=== PATIENT | female | born 1985 | race Caucasian/White ===

== ENCOUNTER 2017-04-21 12:24 | Outpatient (CLI) | payer MEDICAID ==
[2017-04-21 13:35] LABS: ADD MAN DIFF? NO
[2017-04-21 13:36] LABS: WHITE BLOOD COUNT 7.3 10^3/ul (4.8-10.8)
[2017-04-21 13:36] LABS: BASOPHILS % 0.3 % (0.0-2.0); EOSINOPHILS # 0.1 10^3/ul (0.0-0.5); EOSINOPHILS % 0.7 % (0.0-7.0); HEMATOCRIT 31.6 % (37.0-47.0); HEMOGLOBIN 10.8 g/dl (12.0-16.0); LYMPHOCYTES # 1.7 10^3/ul (0.8-2.9); LYMPHOCYTES % 23.2 % (15.0-51.0); MEAN CORPUSCULAR HEMOGLOBIN 30.1 pg (29.0-33.0); MEAN CORPUSCULAR HGB CONC 34.2 g/dl (32.0-37.0); MEAN PLATELET VOLUME 10.6 fl (7.4-10.4); MONOCYTE # 0.4 10^3/ul (0.3-0.9); MONOCYTES % 5.7 % (0.0-11.0); NEUTROPHIL # 5.1 10^3/ul (1.6-7.5); NEUTROPHILS % 69.1 % (39.0-77.0); PLATELET COUNT 216 10^3/UL (140-415); RED BLOOD COUNT 3.59 10^6/ul (4.20-5.40); RED CELL DISTRIBUTION WIDTH 14.6 % (11.5-14.5)
[2017-04-21 13:56] LABS: INR 0.91; PARTIAL THROMBOPLASTIN TIME 27.5 Sec (25.0-35.0); PROTIME 12.3 Sec (11.9-14.9)
[2017-04-21 13:57] LABS: ALANINE AMINOTRANSFERASE 29 IU/L (13-69); ALBUMIN 3.6 g/dl (3.3-4.9); ALBUMIN/GLOBULIN RATIO 1.16; ALKALINE PHOSPHATASE 178 IU/L (42-121); ANION GAP 15 (8-16); ASPARTATE AMINO TRANSFERASE 20 IU/L (15-46); BILIRUBIN,INDIRECT 0.2 mg/dl (0-1.1); BILIRUBIN,TOTAL 0.2 mg/dl (0.2-1.3); BLOOD UREA NITROGEN 10 mg/dl (7-20); CALCIUM 9.2 mg/dl (8.4-10.2); CARBON DIOXIDE 19 mmol/L (21-31); CHLORIDE 106 mmol/L (97-110); CREATININE 0.57 mg/dl (0.44-1.00); GLUCOSE 80 mg/dl (70-220); SODIUM 136 mmol/L (135-144); TOTAL PROTEIN 6.7 g/dl (6.1-8.1); URIC ACID 5.5 mg/dl (3.1-7.9)
[2017-04-21 14:00] LABS: ADD UMIC YES; UR ASCORBIC ACID NEGATIVE (NEGATIVE); UR BACTERIA MODERATE /HPF (NONE SEEN); UR BILIRUBIN (Dip) NEGATIVE (NEGATIVE); UR BLOOD (Dip) 2+ mg/dL (NEGATIVE); UR CLARITY SLIGHTLY CLOUDY (CLEAR); UR COLOR YELLOW (YELLOW); UR GLUCOSE (Dip) NEGATIVE (NEGATIVE); UR KETONES (Dip) NEGATIVE (NEGATIVE); UR LEUKOCYTE ESTERASE (Dip) TRACE Leu/ul (NEGATIVE); UR NITRITE (Dip) NEGATIVE (NEGATIVE); UR RBC 3 /HPF (0-5); UR SPECIFIC GRAVITY (Dip) 1.004 (1.003-1.030); UR SQUAMOUS EPITHELIAL CELL FEW /HPF (FEW); UR TOTAL PROTEIN (Dip) NEGATIVE (NEGATIVE); UR UROBILINOGEN (Dip) NEGATIVE (NEGATIVE); UR WBC 2 /HPF (0-5)
== END 2017-04-21 15:00 | disposition home or self-care (01) ==
LOC: OBT 12:24 → L-D 12:24 → OBT 15:00
DX: O13.3 Gestational [pregnancy-induced] hypertension without significant proteinuria, third trimester (principal); Z3A.39 39 weeks gestation of pregnancy
CPT/HCPCS: 76815; 76818; 80053; 81001; 84560; 85025; 85384; 85610; 85730

== ENCOUNTER 2017-04-23 06:03 | Inpatient (IN) | payer MEDICAID ==
[2017-04-23] MEDS: AMPICILLIN 1 GM/NS (PMX) 50 ML IV ×4 (02:06→22:01)
[2017-04-23] MEDS ORDERED: OXYTOCIN 30 UNITS/LR 500 ML IV (06:30)
[2017-04-23] MEDS ORDERED: MINERAL OIL LIGHT 10 ML VIAL TOP (06:30)
[2017-04-23] MEDS ORDERED: MISOPROSTOL 200 MCG TAB PR (06:30)
[2017-04-23] MEDS ORDERED: METHYLERGONOVINE 0.2 MG INJ IM (06:30)
[2017-04-23] MEDS ORDERED: CARBOPROST 250 MCG INJ IM (06:30)
[2017-04-23] MEDS ORDERED: IBUPROFEN 600 MG TAB PO (06:30)
[2017-04-23] MEDS: LACTATED RINGER'S 500 ML IV (06:58)
[2017-04-23] MEDS: LACTATED RINGER'S 1,000 ML IV ×2 (07:20→16:00)
[2017-04-23 07:22] LABS: ADD MAN DIFF? NO
[2017-04-23 07:49] LABS: BASOPHILS % 0.4 % (0.0-2.0); EOSINOPHILS # 0.1 10^3/ul (0.0-0.5); EOSINOPHILS % 1.1 % (0.0-7.0); HEMATOCRIT 35.1 % (37.0-47.0); HEMOGLOBIN 12.2 g/dl (12.0-16.0); LYMPHOCYTES # 2.3 10^3/ul (0.8-2.9); LYMPHOCYTES % 31.3 % (15.0-51.0); MEAN CORPUSCULAR HEMOGLOBIN 31.4 pg (29.0-33.0); MEAN CORPUSCULAR HGB CONC 34.8 g/dl (32.0-37.0); MEAN CORPUSCULAR VOLUME 90.2 fl (82.0-101.0); MONOCYTE # 0.4 10^3/ul (0.3-0.9); MONOCYTES % 5.2 % (0.0-11.0); NEUTROPHIL # 4.4 10^3/ul (1.6-7.5); NEUTROPHILS % 60.6 % (39.0-77.0); PLATELET COUNT 230 10^3/UL (140-415); RED BLOOD COUNT 3.89 10^6/ul (4.20-5.40); RED CELL DISTRIBUTION WIDTH 15.7 % (11.5-14.5)
[2017-04-23 07:49] LABS: WHITE BLOOD COUNT 7.3 10^3/ul (4.8-10.8)
[2017-04-23 07:58] LABS: INR 0.82; PARTIAL THROMBOPLASTIN TIME 27.5 Sec (25.0-35.0); PROTIME 11.3 Sec (11.9-14.9); PT RATIO 0.9
[2017-04-23] MEDS: DINOPROSTONE 10 MG VAG SUPP VAG (09:37)
[2017-04-23] MEDS: AMPICILLIN 2 GM/NS (PMX) 100 ML IV (09:56)
[2017-04-23 15:16] LABS: RAPID PLASMA REAGIN NONREACTIVE (NR)
[2017-04-24] MEDS: LACTATED RINGER'S 1,000 ML IV ×3 (00:28→20:28)
[2017-04-24] MEDS: AMPICILLIN 1 GM/NS (PMX) 50 ML IV ×3 (02:06→10:28)
[2017-04-24] MEDS: MISOPROSTOL 25 MCG CAPSULE PO ×4 (11:43→21:19)
[2017-04-24] MEDS: AMPICILLIN 1 GM/NS (PMX) 50 ML IVPB ×3 (14:20→21:21)
[2017-04-24] MEDS: BUTORPHANOL 2 MG INJ IV (20:36)
[2017-04-25] MEDS ORDERED: OXYTOCIN 30 UNITS/LR 500 ML IV ×2 (00:30→01:30)
[2017-04-25] MEDS: LIDOCAINE 1% (MPF) 30 ML INJ INJ (00:43)
[2017-04-25] MEDS: OXYTOCIN 30 UNITS/LR 500 ML IV ×3 (00:45→01:40)
[2017-04-25] MEDS: MINERAL OIL LIGHT 10 ML VIAL TOP (00:49)
[2017-04-25] MEDS: MISOPROSTOL 25 MCG CAPSULE PO (01:00)
[2017-04-25] MEDS: AMPICILLIN 1 GM/NS (PMX) 50 ML IVPB (01:00)
[2017-04-25] MEDS: LACTATED RINGER'S 1,000 ML IV* (01:22)
[2017-04-25] MEDS ORDERED: MISOPROSTOL 200 MCG TAB PR (01:30)
[2017-04-25] MEDS ORDERED: CARBOPROST 250 MCG INJ IM (01:30)
[2017-04-25] MEDS ORDERED: METHYLERGONOVINE 0.2 MG INJ IM (01:30)
[2017-04-25] MEDS: OXYCODONE/ASPIRIN (4.88/325) TAB PO (03:28)
[2017-04-25] MEDS ORDERED: DIBUCAINE 1% 30 GM OINT PR (03:30)
[2017-04-25] MEDS: IBUPROFEN 600 MG TAB PO ×3 (06:16→17:47)
[2017-04-25] MEDS: BENZOCAINE 20% 56 ML SPRAY TOP (06:37)
[2017-04-25] MEDS: LANOLIN 7 GM TUBE TOP (06:38)
[2017-04-25] MEDS: WITCH HAZEL/GLYCERIN PAD PR (06:38)
[2017-04-26] MEDS: IBUPROFEN 600 MG TAB PO ×4 (00:25→17:35)
[2017-04-26 09:15] LABS: ADD MAN DIFF? NO
[2017-04-26 09:17] LABS: WHITE BLOOD COUNT 9.8 10^3/ul (4.8-10.8)
[2017-04-26 09:17] LABS: BASOPHILS % 0.3 % (0.0-2.0); EOSINOPHILS # 0.1 10^3/ul (0.0-0.5); EOSINOPHILS % 0.7 % (0.0-7.0); HEMATOCRIT 26.9 % (37.0-47.0); HEMOGLOBIN 8.9 g/dl (12.0-16.0); LYMPHOCYTES # 2.8 10^3/ul (0.8-2.9); LYMPHOCYTES % 28.8 % (15.0-51.0); MEAN CORPUSCULAR HEMOGLOBIN 29.4 pg (29.0-33.0); MEAN CORPUSCULAR HGB CONC 33.1 g/dl (32.0-37.0); MEAN CORPUSCULAR VOLUME 88.8 fl (82.0-101.0); MEAN PLATELET VOLUME 10.7 fl (7.4-10.4); MONOCYTE # 0.5 10^3/ul (0.3-0.9); MONOCYTES % 4.6 % (0.0-11.0); NEUTROPHIL # 6.2 10^3/ul (1.6-7.5); NEUTROPHILS % 63.5 % (39.0-77.0); PLATELET COUNT 217 10^3/UL (140-415); RED BLOOD COUNT 3.03 10^6/ul (4.20-5.40); RED CELL DISTRIBUTION WIDTH 15.3 % (11.5-14.5)
[2017-04-27] MEDS: IBUPROFEN 600 MG TAB PO ×3 (00:03→12:34)
[2017-04-27 04:25] LABS: HEPATITIS B SURFACE ANTIGEN NEGATIVE (NEGATIVE)
[2017-04-27] MEDS: WITCH HAZEL/GLYCERIN PAD PR (05:36)
[2017-04-27] MEDS: DIPHTH/TET/ACEL PERTUSS (ADULT) 0.5 ML VIAL IM* (09:00)
[2017-04-27] MEDS: BENZOCAINE 20% 56 ML SPRAY TOP (09:05)
[2017-04-27] MEDS: OXYCODONE/ASPIRIN (4.88/325) TAB PO (09:06)
== END 2017-04-27 16:40 | disposition home or self-care (01) | DRG 775 ==
LOC: OBT 06:03 → PP1 04-25 03:07 → L-D 06:13
PROVIDERS: Obstetrics & Gynecology
PROC: 10E0XZZ Delivery of Products of Conception, External Approach (ICD-10-PCS; principal; 2017-04-25)
PROC: 0DQR0ZZ Repair Anal Sphincter, Open Approach (ICD-10-PCS; 2017-04-25)
PROC: 3E033VJ Introduction of Other Hormone into Peripheral Vein, Percutaneous Approach (ICD-10-PCS; 2017-04-25)
DX: O70.20 Third degree perineal laceration during delivery, unspecified (principal); Z37.0 Single live birth; Z3A.39 39 weeks gestation of pregnancy
CPT/HCPCS: 85025; 85610; 85730; 86592; 86900; 86901; 87340; 90715; 99464